=== PATIENT | male | born 1940 | race Caucasian/White ===

== ENCOUNTER → 2016-07-16 | Outpatient (REF) | payer MEDICARE, BC ==
[~2016-07-16] MED LIST: /AUGM875TA OR; /WARF5TA OR; ASPI81TA45 OR; CELE40TA OR; CLEO300C OR; CORE6.25 OR; DIGO0.126 OR; LASI20TA OR; LISI20TA5 OR; PROP40TA OR; SIMV80TA OR; SPIR25TA2 OR; WARF5VL IV
[2016-07-16 21:19] LABS: BASO % 0.5 % (0.0-1.0); EOS # 0.1 K/mm3 (0.0-0.50); EOS % 1.5 % (0.0-3.0); LARGE UNSTAINED CELL # 0.4 K/mm3 (0.0-0.4); LARGE UNSTAINED CELL % 4.7 % (0.0-4.0); LYMPH # 3.3 K/mm3 (1.5-4.5); LYMPH % 41.9 % (24.0-44.0); MEAN CORPUSCULAR HEMOGLOBIN 29.4 pg (27.0-33.0); MEAN CORPUSCULAR HGB CONC 31.3 g/dl (32.0-36.5); MEAN CORPUSCULAR VOLUME 93.8 fl (80.0-96.0); MONO # 0.4 K/mm3 (0.0-0.8); MONO % 4.6 % (0.0-5.0); NEUTROPHILS # 3.7 K/mm3 (1.8-7.7); NEUTROPHILS % 46.9 % (36.0-66.0); PLATELET COUNT, AUTOMATED 114 k/mm3 (150-450); RED CELL DISTRIBUTION WIDTH 14.4 % (11.5-14.5); WHITE BLOOD COUNT 7.9 K/mm3 (4.0-10.0)
[2016-07-16 21:26] LABS: ALBUMIN 3.8 GM/DL (3.2-5.2); ALBUMIN/GLOBULIN RATIO 1.46 (1.00-1.93); BILIRUBIN,DIRECT 0.2 MG/DL (0.0-0.2); BILIRUBIN,TOTAL 0.7 MG/DL (0.2-1.0); CALCIUM LEVEL 8.2 MG/DL (8.8-10.2); CREATININE FOR GFR 1.49 MG/DL (0.70-1.30); GLOMERULAR FILTRATION RATE 49.1 (>42); TOTAL PROTEIN 6.4 GM/DL (6.4-8.2)
== END ==
LOC: M LAB REF 20:16
PROVIDERS: ATTEND Internal Medicine Interventional Cardiology
DX: I47.2 Ventricular tachycardia (principal); I25.10 Atherosclerotic heart disease of native coronary artery without angina pectoris; I25.5 Ischemic cardiomyopathy

== ENCOUNTER 2016-12-17 00:52 | Emergency (ER) | payer MEDICARE, BC ==
[~2016-12-17] VITALS: Ht 180.3 cm; Wt 89.5 kg
[~2016-12-17 00:52] MED LIST changes: -LASI20TA OR; +LASI20TA PO
[2016-12-17 02:30] VITALS: BP 112/77
[2016-12-17 03:13] LABS: CALCIUM LEVEL 8.7 MG/DL (8.8-10.2); CREATININE FOR GFR 1.64 MG/DL (0.70-1.30); GLOMERULAR FILTRATION RATE 43.9 (>42); POTASSIUM SERUM 4.6 MEQ/L (3.5-5.1)
== END 2016-12-17 03:55 | disposition home or self-care (01) ==
LOC: EDBD 00:52 → M ED 00:52
DX: T40.2X5A Adverse effect of other opioids, initial encounter (principal); I48.91 Unspecified atrial fibrillation; I25.10 Atherosclerotic heart disease of native coronary artery without angina pectoris; I50.9 Heart failure, unspecified; I10 Essential (primary) hypertension; J44.9 Chronic obstructive pulmonary disease, unspecified

== ENCOUNTER → 2017-01-07 | Outpatient (REF) | payer MEDICARE, BC | LOC: M LAB REF 12:08 | PROVIDERS: ATTEND Physician Assistant | DX: L03.011 Cellulitis of right finger (principal) ==

== ENCOUNTER → 2017-02-05 | Outpatient (REF) | payer MEDICARE, BC | LOC: M LAB REF 12:27 | PROVIDERS: ATTEND Internal Medicine | DX: Z85.6 Personal history of leukemia (principal) ==

== ENCOUNTER → 2017-08-09 | Outpatient (REF) | payer MEDICARE, BC ==
[2017-08-10 14:25] LABS: RHEUMATOID FACTOR QUANT < 10.0 IU/ML (<15.0)
[2017-08-11 14:14] LABS: ANTINUCLEAR ANTIBODIES DIRECT Negative (Negative)
[2017-08-12 00:07] LABS: CYCLIC CITRULLINATED PEPTIDE 5 units (0-19)
== END ==
LOC: M LAB REF 13:48
DX: M05.80 Other rheumatoid arthritis with rheumatoid factor of unspecified site (principal)
CPT/HCPCS: 86038

== ENCOUNTER 2017-09-02 06:21 | Day surgery (SDC) | payer MEDICARE, BC ==
[~2017-09-02 06:21] MED LIST changes: -/AUGM875TA OR; -/WARF5TA OR; -ASPI81TA45 OR; -CELE40TA OR; -CLEO300C OR; -CORE6.25 OR; -DIGO0.126 OR; -LASI20TA PO; -LISI20TA5 OR; -PROP40TA OR; -SIMV80TA OR; +SLF 3 ML SYR IV; -SPIR25TA2 OR; -WARF5VL IV
[2017-09-02] MEDS ORDERED: LIDOCAINE 1% MDV 20ML VIAL SQ (06:30)
[2017-09-02] MEDS: OFLOXACIN 0.3 % (OCUFLOX) OPTH SOL 5ML OD (06:55)
[2017-09-02] MEDS: PHENYLEPHRINE 2.5% OPHTH SOL 2ML OD (06:55)
[2017-09-02] MEDS: TROPICAMIDE 1% OPHTH SOLN 2ML OD (06:56)
[2017-09-02] MEDS: PROPARACAINE 0.5% OPHTH SOL 15ML OD (06:56)
[2017-09-02] MEDS ORDERED: MIDAZOLAM INJ 2 MG/2 ML VIAL (J2250) As Ordered (07:27)
[2017-09-02] MEDS ORDERED: fentaNYL 100 MCG/2 ML INJECTION (J3010) As Ordered (07:27)
[2017-09-02] MEDS: POVIDONE-IODINE 5% OPHTH PREP SOL 30ML As Ordered (08:19)
[2017-09-02] MEDS: CEFUROXIME 1MG/0.1ML INTRACAMERAL INJ As Ordered (08:19)
[2017-09-02] MEDS: BALANCED SALT IRRIGATION SOLUTION 500ML BAG (FOR OR EYE MACHINE) As Ordered (08:19)
[2017-09-02] MEDS: LIDOCAINE 0.75%/EPINEPHRINE 0.025% IN BSS 1ML SYR INTRACAMERAL (OR ONLY) As Ordered (08:19)
[2017-09-02] MEDS: DUOVISC (0.50ML VISCOAT/0.55ML PROVISC) OPHTH KIT As Ordered (08:19)
== END 2017-09-02 09:10 | disposition home or self-care (01) ==
LOC: M SDC 06:21
DX: H25.11 Age-related nuclear cataract, right eye (principal); I25.10 Atherosclerotic heart disease of native coronary artery without angina pectoris; I50.32 Chronic diastolic (congestive) heart failure; M12.9 Arthropathy, unspecified; I11.9 Hypertensive heart disease without heart failure; I25.2 Old myocardial infarction; M54.9 Dorsalgia, unspecified; J44.9 Chronic obstructive pulmonary disease, unspecified; C95.10 Chronic leukemia of unspecified cell type not having achieved remission; Z79.899 Other long term (current) drug therapy; Z79.01 Long term (current) use of anticoagulants; Z79.82 Long term (current) use of aspirin; Z95.810 Presence of automatic (implantable) cardiac defibrillator; Z96.642 Presence of left artificial hip joint; Z87.891 Personal history of nicotine dependence
CPT/HCPCS: 66984

== ENCOUNTER → 2017-10-25 | Outpatient (CLI) | payer MEDICARE, BC ==
[2017-10-25 13:14] LABS: ANION GAP 11 MEQ/L (8-16); BLOOD UREA NITROGEN 70 MG/DL (7-18); CALCIUM LEVEL 8.9 MG/DL (8.8-10.2); CARBON DIOXIDE LEVEL 36 MEQ/L (21-32); CHLORIDE LEVEL 89 MEQ/L (98-107); GLOMERULAR FILTRATION RATE 34.8 (>42); GLUCOSE, FASTING 144 MG/DL (70-100); MAGNESIUM LEVEL 2.6 MG/DL (1.8-2.4); POTASSIUM SERUM 3.3 MEQ/L (3.5-5.1); SODIUM LEVEL 136 MEQ/L (136-145)
== END ==
LOC: M ADAMS 11:03
DX: I47.2 Ventricular tachycardia (principal)
CPT/HCPCS: 83735

== ENCOUNTER → 2018-02-11 | Outpatient (REF) | payer MEDICARE, BC | LOC: M LAB REF 19:13 | DX: N39.0 Urinary tract infection, site not specified (principal) | CPT/HCPCS: 87186 ==

== ENCOUNTER → 2018-02-14 | Outpatient (REF) | payer MEDICARE, BC ==
[2018-02-14 15:16] LABS: ANION GAP 12 MEQ/L (8-16); BLOOD UREA NITROGEN 62 MG/DL (7-18); CALCIUM LEVEL 9.1 MG/DL (8.8-10.2); CARBON DIOXIDE LEVEL 35 MEQ/L (21-32); CHLORIDE LEVEL 87 MEQ/L (98-107); GLUCOSE, FASTING 143 MG/DL (70-100); POTASSIUM SERUM 3.8 MEQ/L (3.5-5.1); SODIUM LEVEL 134 MEQ/L (136-145)
== END ==
LOC: M LABDRWAD 14:55
DX: I50.23 Acute on chronic systolic (congestive) heart failure (principal)
CPT/HCPCS: 80048

== ENCOUNTER 2018-02-17 21:57 | Inpatient (IN) | payer MEDICARE, BC ==
[2018-02-17 22:13] LABS: BEDSIDE GLUCOSE 131 MG/DL (83-110)
[2018-02-18 00:18] LABS: KETONE, URINE AUTO RFX NEGATIVE (NEGATIVE); LEUKOCYTE ESTERASE UR AUTO RFX NEGATIVE (NEGATIVE); NITRITE, URINE AUTO RFX NEGATIVE (NEGATIVE); RBC, URINE AUTO RFX TNTC /HPF (0-3); SPECIFIC GRAVITY UR AUTO RFX 1.012 (1.002-1.035); SQUAM EPITHELIAL CELL UR AURFX 1 /HPF (0-6); WBC, URINE AUTO RFX 33 /HPF (0-3)
[2018-02-18 00:36] LABS: HEMATOCRIT 47.3 % (42.0-52.0); HEMOGLOBIN 16.2 g/dl (13.5-17.5); MEAN CORPUSCULAR HEMOGLOBIN 31.9 pg (27.0-33.0); MEAN CORPUSCULAR HGB CONC 34.2 g/dl (32.0-36.5); MEAN CORPUSCULAR VOLUME 93.1 fl (80.0-96.0); PLATELET COUNT, AUTOMATED 256 10^3/uL (150-450); RED BLOOD COUNT 5.08 10^6/uL (4.30-6.10); RED CELL DISTRIBUTION WIDTH 18.6 % (11.5-14.5)
[2018-02-18 00:55] LABS: INR 3.01; PROTHROMBIN TIME 31.9 SECONDS (12.1-14.4)
[2018-02-18 00:56] LABS: PARTIAL THROMBOPLASTIN TIME 39.6 SECONDS (25.4-37.6)
[2018-02-18 01:06] LABS: ALBUMIN 3.3 GM/DL (3.2-5.2); ALBUMIN/GLOBULIN RATIO 1.06 (1.00-1.93); ALKALINE PHOSPHATASE 274 U/L (45-117); ALT/SGPT 169 U/L (12-78); ANION GAP 12 MEQ/L (8-16); AST/SGOT 253 U/L (7-37); BILIRUBIN,DIRECT 2.2 MG/DL (0.0-0.2); BILIRUBIN,TOTAL 3.1 MG/DL (0.2-1.0); BLOOD UREA NITROGEN 80 MG/DL (7-18); CALCIUM LEVEL 8.3 MG/DL (8.8-10.2); CARBON DIOXIDE LEVEL 27 MEQ/L (21-32); CHLORIDE LEVEL 85 MEQ/L (98-107); CPK CREATINE PHOSPHOKINASE 65 U/L (39-308); CREATININE FOR GFR 3.16 MG/DL (0.70-1.30); GLOMERULAR FILTRATION RATE 20.6 (>42); GLUCOSE, FASTING 118 MG/DL (70-100); MB/CK RELATIVE INDEX 4.15 (< OR =4); POTASSIUM SERUM 6.9 MEQ/L (3.5-5.1); SODIUM LEVEL 124 MEQ/L (136-145); TOTAL PROTEIN 6.4 GM/DL (6.4-8.2); TROPONIN I 0.04 NG/ML (< 0.10)
[2018-02-18 01:21] LABS: POS COUNT POS FLAG; POSITIVE DIFF POS FLAG; WHITE BLOOD COUNT 37.1 10^3/uL (4.0-10.0)
[2018-02-18] MEDS: CALCIUM GLUCONATE 1,000 MG in D5W MINI-BAG PLUS 100 ML IV (01:30)
[2018-02-18 01:31] LABS: ADD MANUAL DIFFER YES; DIFF SLIDE NUMBER 375
[2018-02-18 01:33] LABS: ATYPICAL LYMPH 4 % (0-5); LYMPHOCYTES 55 % (16-52); MONOCYTES 5 % (0-8); NEUTROPHILS 36 % (35-75); PLATELET ESTIMATE NORMAL (NORMAL)
[2018-02-18 01:34] LABS: OVALOCYTES 1+; SMUDGE CELLS 2+
[2018-02-18 01:35] LABS: ANISOCYTOSIS 1+
[2018-02-18] MEDS: NS 1,000 ML IV ×3 (01:43→14:08)
[2018-02-18] MEDS: HumuLIN R (REGULAR) INSULIN (NovoLIN R) **100U/ML** PER UNIT IV (01:44)
[2018-02-18] MEDS: DEXTROSE 50% 50 ML SYRINGE IV (01:44)
[2018-02-18] MEDS: SOD POLYSTYRENE SULFONATE SUSP 15 GM/60 ML UD PO (01:45)
[2018-02-18] MEDS ORDERED: ACETAMINOPHEN TAB 650MG DOSE (2X325MG) PO (01:45)
[2018-02-18] MEDS: cefTRIAXone SOD 1 GM in D5W MINI-BAG PLUS 50 ML IV (02:00)
[2018-02-18 02:36] LABS: BEDSIDE GLUCOSE 216 MG/DL (83-110)
[2018-02-18 05:30] LABS: HEMATOCRIT 43.9 % (42.0-52.0); HEMOGLOBIN 14.6 g/dl (13.5-17.5); MEAN CORPUSCULAR HEMOGLOBIN 30.9 pg (27.0-33.0); MEAN CORPUSCULAR HGB CONC 33.3 g/dl (32.0-36.5); MEAN CORPUSCULAR VOLUME 92.8 fl (80.0-96.0); PLATELET COUNT, AUTOMATED 237 10^3/uL (150-450); RED BLOOD COUNT 4.73 10^6/uL (4.30-6.10); RED CELL DISTRIBUTION WIDTH 17.6 % (11.5-14.5)
[2018-02-18 05:36] LABS: ADD MANUAL DIFFER YES; DIFF SLIDE NUMBER 75; POS COUNT POS FLAG; POSITIVE DIFF POS FLAG; POSITIVE MORPH POS FLAG; WHITE BLOOD COUNT 31.4 10^3/uL (4.0-10.0)
[2018-02-18 05:40] LABS: INR 3.21; PROTHROMBIN TIME 33.6 SECONDS (12.1-14.4)
[2018-02-18 06:00] LABS: ALBUMIN 3.1 GM/DL (3.2-5.2); ALBUMIN/GLOBULIN RATIO 1.03 (1.00-1.93); ALKALINE PHOSPHATASE 274 U/L (45-117); ALT/SGPT 168 U/L (12-78); ANION GAP 11 MEQ/L (8-16); AST/SGOT 244 U/L (7-37); BILIRUBIN,TOTAL 2.7 MG/DL (0.2-1.0); BLOOD UREA NITROGEN 90 MG/DL (7-18); CALCIUM LEVEL 8.8 MG/DL (8.8-10.2); CARBON DIOXIDE LEVEL 27 MEQ/L (21-32); CHLORIDE LEVEL 88 MEQ/L (98-107); CREATININE FOR GFR 3.34 MG/DL (0.70-1.30); GLOMERULAR FILTRATION RATE 19.3 (>42); GLUCOSE, FASTING 119 MG/DL (70-100); POTASSIUM SERUM 6.2 MEQ/L (3.5-5.1); SODIUM LEVEL 126 MEQ/L (136-145); TOTAL PROTEIN 6.1 GM/DL (6.4-8.2)
[2018-02-18] MEDS: PANTOPRAZOLE 40MG INJ (PROTONIX) (C9113) IV (06:02)
[2018-02-18 07:49] LABS: ANISOCYTOSIS 1+; ATYPICAL LYMPH 7 % (0-5); LYMPHOCYTES 49 % (16-52); MONOCYTES 5 % (0-8); NEUTROPHILS 39 % (35-75); PLATELET ESTIMATE NORMAL (NORMAL)
[2018-02-18 07:50] LABS: SMUDGE CELLS 2+
[2018-02-18] MEDS: TIOTROPIUM INHALER/CAPSULE (SPIRIVA) INH (08:05)
[2018-02-18 08:06] LABS: OVALOCYTES 2+
[2018-02-18] MEDS: ALLOPURINOL 100 MG TAB PO ×2 (08:09→21:36)
[2018-02-18] MEDS: SERTRALINE HCL 50 MG TAB PO (08:09)
[2018-02-18] MEDS: FEXOFENADINE 60 MG TAB PO (08:09)
[2018-02-18] MEDS: FLUTICASONE PROP 0.05% NASAL SPRAY 16 GM (FLONASE) (08:10)
[2018-02-18 14:32] LABS: SODIUM LEVEL 130 MEQ/L (136-145)
[2018-02-18 14:32] LABS: POTASSIUM SERUM 4.9 MEQ/L (3.5-5.1)
[2018-02-18] MEDS: MONTELUKAST 10 MG TAB PO (21:36)
[2018-02-19] MEDS: cefTRIAXone SOD 1 GM in D5W MINI-BAG PLUS 50 ML IV (03:02)
[2018-02-19] MEDS: PANTOPRAZOLE 40MG INJ (PROTONIX) (C9113) IV (05:43)
[2018-02-19 06:04] LABS: HEMATOCRIT 39.6 % (42.0-52.0); HEMOGLOBIN 13.4 g/dl (13.5-17.5); MEAN CORPUSCULAR HEMOGLOBIN 31.6 pg (27.0-33.0); MEAN CORPUSCULAR HGB CONC 33.8 g/dl (32.0-36.5); MEAN CORPUSCULAR VOLUME 93.4 fl (80.0-96.0); PLATELET COUNT, AUTOMATED 157 10^3/uL (150-450); RED BLOOD COUNT 4.24 10^6/uL (4.30-6.10); RED CELL DISTRIBUTION WIDTH 17.8 % (11.5-14.5)
[2018-02-19 06:16] LABS: INR 3.64; PROTHROMBIN TIME 37.1 SECONDS (12.1-14.4)
[2018-02-19 06:17] LABS: ADD MANUAL DIFFER YES; DIFF SLIDE NUMBER 54; POSITIVE DIFF POS FLAG; WHITE BLOOD COUNT 16.7 10^3/uL (4.0-10.0)
[2018-02-19 06:48] LABS: ALBUMIN 3.1 GM/DL (3.2-5.2); ALBUMIN/GLOBULIN RATIO 1.24 (1.00-1.93); ALKALINE PHOSPHATASE 255 U/L (45-117); ALT/SGPT 143 U/L (12-78); ANION GAP 10 MEQ/L (8-16); AST/SGOT 165 U/L (7-37); BILIRUBIN,TOTAL 1.8 MG/DL (0.2-1.0); BLOOD UREA NITROGEN 91 MG/DL (7-18); CALCIUM LEVEL 8.1 MG/DL (8.8-10.2); CARBON DIOXIDE LEVEL 30 MEQ/L (21-32); CHLORIDE LEVEL 87 MEQ/L (98-107); CREATININE FOR GFR 3.19 MG/DL (0.70-1.30); GLOMERULAR FILTRATION RATE 20.3 (>42); GLUCOSE, FASTING 109 MG/DL (70-100); POTASSIUM SERUM 3.9 MEQ/L (3.5-5.1); SODIUM LEVEL 127 MEQ/L (136-145); TOTAL PROTEIN 5.6 GM/DL (6.4-8.2)
[2018-02-19 07:04] LABS: EOSINOPHILS 1 % (0-5); LYMPHOCYTES 48 % (16-52); MONOCYTES 4 % (0-8); NEUTROPHILS 47 % (35-75); OVALOCYTES 1+; POIKILOCYTOSIS 1+
[2018-02-19 07:05] LABS: ANISOCYTOSIS 1+; PLATELET ESTIMATE NORMAL (NORMAL)
[2018-02-19] MEDS ORDERED: SLF 3 ML SYR IV (07:45)
[2018-02-19] MEDS: TIOTROPIUM INHALER/CAPSULE (SPIRIVA) INH (07:46)
[2018-02-19] MEDS: ALLOPURINOL 100 MG TAB PO ×2 (09:26→21:27)
[2018-02-19] MEDS: SERTRALINE HCL 50 MG TAB PO (09:26)
[2018-02-19] MEDS: FEXOFENADINE 60 MG TAB PO (09:26)
[2018-02-19] MEDS: ASPIRIN 81 MG ENTERIC TAB PO (09:26)
[2018-02-19] MEDS: FLUTICASONE PROP 0.05% NASAL SPRAY 16 GM (FLONASE) (09:27)
[2018-02-19] MEDS: FLUBLOK(EGG FREE)(QUAD)INFLUENZA VACC 0.5ML SYRINGE (90682)18YRS&OLDER IM (09:29)
[2018-02-19] MEDS: SLF 3 ML SYR IV ×2 (13:31→21:27)
[2018-02-19] MEDS: LevoFLOXacin 500 MG TABLET PO (15:42)
[2018-02-19] MEDS ORDERED: WARFARIN SOD 2.5 MG TAB PO (17:00)
[2018-02-19] MEDS: MONTELUKAST 10 MG TAB PO (21:27)
[2018-02-20] MEDS: LevoFLOXacin 250 MG TABLET PO (05:21)
[2018-02-20] MEDS: SLF 3 ML SYR IV ×3 (05:22→21:11)
[2018-02-20 05:36] LABS: BASO % 0.2 % (0.0-1.0); EOS # 0.2 10^3/uL (0.0-0.50); EOS % 1.5 % (0.0-3.0); HEMATOCRIT 38.3 % (42.0-52.0); HEMOGLOBIN 13.1 g/dl (13.5-17.5); LYMPH # 3.9 10^3/uL (1.5-4.5); LYMPH % 34.6 % (24.0-44.0); MEAN CORPUSCULAR HEMOGLOBIN 31.6 pg (27.0-33.0); MEAN CORPUSCULAR HGB CONC 34.2 g/dl (32.0-36.5); MEAN CORPUSCULAR VOLUME 92.3 fl (80.0-96.0); MONO # 0.5 10^3/uL (0.0-0.8); MONO % 4.4 % (0.0-5.0); NEUTROPHILS # 6.6 10^3/uL (1.8-7.7); NEUTROPHILS % 58.3 % (36.0-66.0); PLATELET COUNT, AUTOMATED 107 10^3/uL (150-450); RED BLOOD COUNT 4.15 10^6/uL (4.30-6.10); RED CELL DISTRIBUTION WIDTH 17.6 % (11.5-14.5); WHITE BLOOD COUNT 11.3 10^3/uL (4.0-10.0)
[2018-02-20 05:46] LABS: INR 2.94; PROTHROMBIN TIME 31.3 SECONDS (12.1-14.4)
[2018-02-20 06:04] LABS: ALBUMIN 2.8 GM/DL (3.2-5.2); ALBUMIN/GLOBULIN RATIO 1.12 (1.00-1.93); ALKALINE PHOSPHATASE 263 U/L (45-117); ALT/SGPT 116 U/L (12-78); ANION GAP 11 MEQ/L (8-16); AST/SGOT 109 U/L (7-37); BILIRUBIN,TOTAL 1.6 MG/DL (0.2-1.0); BLOOD UREA NITROGEN 86 MG/DL (7-18); CALCIUM LEVEL 7.8 MG/DL (8.8-10.2); CARBON DIOXIDE LEVEL 29 MEQ/L (21-32); CHLORIDE LEVEL 91 MEQ/L (98-107); GLOMERULAR FILTRATION RATE 24.6 (>42); GLUCOSE, FASTING 109 MG/DL (70-100); POTASSIUM SERUM 3.3 MEQ/L (3.5-5.1); SODIUM LEVEL 131 MEQ/L (136-145); TOTAL PROTEIN 5.3 GM/DL (6.4-8.2)
[2018-02-20] MEDS: TIOTROPIUM INHALER/CAPSULE (SPIRIVA) INH (08:26)
[2018-02-20] MEDS: FEXOFENADINE 60 MG TAB PO (09:13)
[2018-02-20] MEDS: ALLOPURINOL 100 MG TAB PO ×2 (09:13→21:10)
[2018-02-20] MEDS: SERTRALINE HCL 50 MG TAB PO (09:13)
[2018-02-20] MEDS: POTASSIUM CHLORIDE 10 MEQ SR TABLET PO (09:14)
[2018-02-20] MEDS: FLUTICASONE PROP 0.05% NASAL SPRAY 16 GM (FLONASE) (09:29)
[2018-02-20] MEDS: MONTELUKAST 10 MG TAB PO (21:10)
[2018-02-21] MEDS: LevoFLOXacin 250 MG TABLET PO (05:21)
[2018-02-21] MEDS: SLF 3 ML SYR IV ×3 (05:21→20:27)
[2018-02-21 05:57] LABS: INR 2.28; PROTHROMBIN TIME 25.6 SECONDS (12.1-14.4)
[2018-02-21 07:20] LABS: HEMATOCRIT 37.7 % (42.0-52.0); HEMOGLOBIN 12.6 g/dl (13.5-17.5); MEAN CORPUSCULAR HEMOGLOBIN 31.3 pg (27.0-33.0); MEAN CORPUSCULAR HGB CONC 33.4 g/dl (32.0-36.5); MEAN CORPUSCULAR VOLUME 93.8 fl (80.0-96.0); PLATELET COUNT, AUTOMATED 102 10^3/uL (150-450); RED BLOOD COUNT 4.02 10^6/uL (4.30-6.10); RED CELL DISTRIBUTION WIDTH 17.3 % (11.5-14.5); WHITE BLOOD COUNT 11.7 10^3/uL (4.0-10.0)
[2018-02-21] MEDS: TIOTROPIUM INHALER/CAPSULE (SPIRIVA) INH (07:26)
[2018-02-21 07:29] LABS: ANION GAP 12 MEQ/L (8-16); BLOOD UREA NITROGEN 76 MG/DL (7-18); CALCIUM LEVEL 7.8 MG/DL (8.8-10.2); CARBON DIOXIDE LEVEL 29 MEQ/L (21-32); CHLORIDE LEVEL 93 MEQ/L (98-107); CREATININE FOR GFR 2.12 MG/DL (0.70-1.30); GLOMERULAR FILTRATION RATE 32.6 (>42); GLUCOSE, FASTING 134 MG/DL (70-100); POTASSIUM SERUM 3.4 MEQ/L (3.5-5.1); SODIUM LEVEL 134 MEQ/L (136-145)
[2018-02-21] MEDS: ASPIRIN 81 MG ENTERIC TAB PO (09:47)
[2018-02-21] MEDS: ALLOPURINOL 100 MG TAB PO ×2 (09:48→20:26)
[2018-02-21] MEDS: POTASSIUM CHLORIDE 10 MEQ SR TABLET PO (09:48)
[2018-02-21] MEDS: SERTRALINE HCL 50 MG TAB PO (09:48)
[2018-02-21] MEDS: FEXOFENADINE 60 MG TAB PO (09:48)
[2018-02-21] MEDS: FLUTICASONE PROP 0.05% NASAL SPRAY 16 GM (FLONASE) (09:49)
[2018-02-21 10:46] LABS: HEPATITIS C VIRUS ABY INDEX < 0.0 INDEX (<0.8)
[2018-02-21 10:46] LABS: HEPATITIS A ANTIBODY IGM NEGATIVE (NEGATIVE); HEPATITIS B CORE ANTIBODY IGM NEGATIVE (NEGATIVE); HEPATITIS B SURFACE ANTIGEN NEGATIVE (NEGATIVE)
[2018-02-21] MEDS: MONTELUKAST 10 MG TAB PO (20:26)
[2018-02-22] MEDS: CEPACOL LOZENGE PO ×2 (01:29→05:36)
[2018-02-22] MEDS: LevoFLOXacin 250 MG TABLET PO (05:36)
[2018-02-22] MEDS: SLF 3 ML SYR IV ×3 (05:37→20:31)
[2018-02-22 06:06] LABS: HEMATOCRIT 38.7 % (42.0-52.0); HEMOGLOBIN 13.3 g/dl (13.5-17.5); MEAN CORPUSCULAR HEMOGLOBIN 31.7 pg (27.0-33.0); MEAN CORPUSCULAR HGB CONC 34.4 g/dl (32.0-36.5); MEAN CORPUSCULAR VOLUME 92.4 fl (80.0-96.0); PLATELET COUNT, AUTOMATED 126 10^3/uL (150-450); RED BLOOD COUNT 4.19 10^6/uL (4.30-6.10); RED CELL DISTRIBUTION WIDTH 17.2 % (11.5-14.5); WHITE BLOOD COUNT 15.7 10^3/uL (4.0-10.0)
[2018-02-22 06:34] LABS: ALBUMIN 2.8 GM/DL (3.2-5.2); ALBUMIN/GLOBULIN RATIO 1.04 (1.00-1.93); ALKALINE PHOSPHATASE 258 U/L (45-117); ALT/SGPT 90 U/L (12-78); ANION GAP 8 MEQ/L (8-16); AST/SGOT 75 U/L (7-37); BILIRUBIN,DIRECT 1.2 MG/DL (0.0-0.2); BILIRUBIN,TOTAL 2.1 MG/DL (0.2-1.0); BLOOD UREA NITROGEN 59 MG/DL (7-18); CALCIUM LEVEL 7.9 MG/DL (8.8-10.2); CARBON DIOXIDE LEVEL 28 MEQ/L (21-32); CHLORIDE LEVEL 96 MEQ/L (98-107); CREATININE FOR GFR 1.71 MG/DL (0.70-1.30); GLOMERULAR FILTRATION RATE 41.8 (>42); GLUCOSE, FASTING 105 MG/DL (70-100); POTASSIUM SERUM 3.9 MEQ/L (3.5-5.1); SODIUM LEVEL 132 MEQ/L (136-145); TOTAL PROTEIN 5.5 GM/DL (6.4-8.2)
[2018-02-22] MEDS: TIOTROPIUM INHALER/CAPSULE (SPIRIVA) INH (07:53)
[2018-02-22] MEDS: SERTRALINE HCL 50 MG TAB PO (08:29)
[2018-02-22] MEDS: FLUTICASONE PROP 0.05% NASAL SPRAY 16 GM (FLONASE) (08:29)
[2018-02-22] MEDS: FEXOFENADINE 60 MG TAB PO (08:29)
[2018-02-22] MEDS: ALLOPURINOL 100 MG TAB PO ×2 (08:29→20:31)
[2018-02-22 11:57] LABS: INR 1.81; PROTHROMBIN TIME 21.3 SECONDS (12.1-14.4)
[2018-02-22] MEDS: WARFARIN SOD 2.5 MG TAB PO (16:36)
[2018-02-22] MEDS: MONTELUKAST 10 MG TAB PO (20:31)
[2018-02-23] MEDS: SLF 3 ML SYR IV (05:29)
[2018-02-23] MEDS: LevoFLOXacin 250 MG TABLET PO (05:29)
[2018-02-23 06:01] LABS: HEMATOCRIT 36.4 % (42.0-52.0); HEMOGLOBIN 12.4 g/dl (13.5-17.5); MEAN CORPUSCULAR HEMOGLOBIN 31.3 pg (27.0-33.0); MEAN CORPUSCULAR HGB CONC 34.1 g/dl (32.0-36.5); MEAN CORPUSCULAR VOLUME 91.9 fl (80.0-96.0); PLATELET COUNT, AUTOMATED 117 10^3/uL (150-450); RED BLOOD COUNT 3.96 10^6/uL (4.30-6.10); RED CELL DISTRIBUTION WIDTH 17.2 % (11.5-14.5); WHITE BLOOD COUNT 15.3 10^3/uL (4.0-10.0)
[2018-02-23 06:23] LABS: ALBUMIN 2.6 GM/DL (3.2-5.2); ALKALINE PHOSPHATASE 245 U/L (45-117); ALT/SGPT 80 U/L (12-78); ANION GAP 9 MEQ/L (8-16); AST/SGOT 70 U/L (7-37); BILIRUBIN,DIRECT 1.2 MG/DL (0.0-0.2); BILIRUBIN,TOTAL 2.3 MG/DL (0.2-1.0); BLOOD UREA NITROGEN 49 MG/DL (7-18); C REACTIVE PROTEIN QUANTITATIV 2.02 MG/DL (0.00-0.30); CALCIUM LEVEL 7.7 MG/DL (8.8-10.2); CARBON DIOXIDE LEVEL 27 MEQ/L (21-32); CHLORIDE LEVEL 96 MEQ/L (98-107); CREATININE FOR GFR 1.43 MG/DL (0.70-1.30); GLOMERULAR FILTRATION RATE 51.3 (>42); GLUCOSE, FASTING 114 MG/DL (70-100); POTASSIUM SERUM 3.5 MEQ/L (3.5-5.1); SODIUM LEVEL 132 MEQ/L (136-145); TOTAL PROTEIN 5.2 GM/DL (6.4-8.2)
[2018-02-23 06:27] LABS: INR 1.58; PROTHROMBIN TIME 19.1 SECONDS (12.1-14.4)
[2018-02-23] MEDS: FEXOFENADINE 60 MG TAB PO (08:39)
[2018-02-23] MEDS: ASPIRIN 81 MG ENTERIC TAB PO (08:40)
[2018-02-23] MEDS: ALLOPURINOL 100 MG TAB PO (08:40)
[2018-02-23] MEDS: FLUTICASONE PROP 0.05% NASAL SPRAY 16 GM (FLONASE) (08:40)
[2018-02-23] MEDS: SERTRALINE HCL 50 MG TAB PO (08:40)
== END 2018-02-23 10:50 | disposition home health service (06) | DRG 683 ==
LOC: M ED INP 02-18 01:44 → M PCU 02-18 04:16 → M ED 21:57
DX: N17.9 Acute kidney failure, unspecified (principal); I50.22 Chronic systolic (congestive) heart failure; C91.10 Chronic lymphocytic leukemia of B-cell type not having achieved remission; E87.1 Hypo-osmolality and hyponatremia; N39.0 Urinary tract infection, site not specified; I13.0 Hypertensive heart and chronic kidney disease with heart failure and stage 1 through stage 4 chronic kidney disease, or unspecified chronic kidney disease; R31.9 Hematuria, unspecified; N18.3 Chronic kidney disease, stage 3 (moderate); J44.9 Chronic obstructive pulmonary disease, unspecified; F32.9 Major depressive disorder, single episode, unspecified; I25.10 Atherosclerotic heart disease of native coronary artery without angina pectoris; M10.9 Gout, unspecified; Z95.1 Presence of aortocoronary bypass graft; E87.5 Hyperkalemia; Z86.711 Personal history of pulmonary embolism; Z79.82 Long term (current) use of aspirin; Z79.899 Other long term (current) drug therapy; E78.5 Hyperlipidemia, unspecified; Z87.891 Personal history of nicotine dependence; Z79.01 Long term (current) use of anticoagulants; B96.1 Klebsiella pneumoniae [K. pneumoniae] as the cause of diseases classified elsewhere; R74.8 Abnormal levels of other serum enzymes

== ENCOUNTER → 2018-02-17 | Outpatient (REF) | payer MEDICARE, BC ==
[2018-02-17 18:44] LABS: APPEARANCE, URINE CLOUDY (CLEAR); BACTERIA, URINE AUTO NEGATIVE (NEGATIVE); BILIRUBIN, URINE AUTO NEGATIVE (NEGATIVE); BLOOD, URINE BLOOD 3+ (NEGATIVE); COLOR, URINE RED (YELLOW); GLUCOSE, URINE (UA) AUTO NEGATIVE (NEGATIVE); KETONE, URINE AUTO NEGATIVE (NEGATIVE); LEUKOCYTE ESTERASE, URINE AUTO 1+ (NEGATIVE); NITRITE, URINE AUTO NEGATIVE (NEGATIVE); PROTEIN, URINE AUTO 1+ mg/dL (NEGATIVE); RBC, URINE AUTO TNTC /HPF (0-3); SPECIFIC GRAVITY URINE AUTO 1.009 (1.002-1.035); SQUAMOUS EPITHELIAL CELL UR AU 1 /HPF (0-6); WBC, URINE AUTO TNTC /HPF (0-3)
== END ==
LOC: M LAB REF 16:47
DX: R31.9 Hematuria, unspecified (principal); N39.0 Urinary tract infection, site not specified

== ENCOUNTER → 2018-03-08 | Outpatient (REF) | payer MEDICARE, BC | LOC: M LAB REF 12:19 | DX: J02.9 Acute pharyngitis, unspecified (principal) | CPT/HCPCS: 87081 ==

== ENCOUNTER 2018-03-09 12:08 | Emergency (ER) | payer MEDICARE, BC ==
[2018-03-09] MEDS ORDERED: EPINEPHrine 1MG/10ML SYRINGE 1.5IN (12:09)
[2018-03-09] MEDS ORDERED: EPINEPHrine 1MG/10ML SYRINGE 1.5IN IV (12:18)
== END 2018-03-09 14:26 | disposition expired ==
LOC: M ED 12:08
DX: I46.9 Cardiac arrest, cause unspecified (principal); I25.10 Atherosclerotic heart disease of native coronary artery without angina pectoris; I50.9 Heart failure, unspecified; I10 Essential (primary) hypertension; E78.5 Hyperlipidemia, unspecified; M10.9 Gout, unspecified; Z85.6 Personal history of leukemia; Z95.1 Presence of aortocoronary bypass graft; Z95.0 Presence of cardiac pacemaker; Z72.0 Tobacco use; Z79.82 Long term (current) use of aspirin; Z79.899 Other long term (current) drug therapy; Z79.01 Long term (current) use of anticoagulants
CPT/HCPCS: 96374